=== PATIENT | female | born 1955 | race American Indian/Alaskan Native ===

== ENCOUNTER 2016-06-12 19:58 | Emergency (ER) | payer BC ==
[2016-06-12] MEDS ORDERED: APRESOLINE IV ONE (20:59)
[2016-06-12] MEDS ORDERED: ANTIVERT PO ONE (20:59)
--- NOTE | 2016-06-12 21:03 | Emergency Department Report ---
HPI - General Time Seen by Provider: 06/12/16 20:55 - HPI HPI: This is a 61-year-old -[place] female who presents to the emergency department via EMS from home with complaint of dizziness and vertigo like symptoms. The patient says that she was twisting around to "get the baby" which I believe to be her grandson or granddaughter, and all of a sudden the room started spinning. The patient began having some nausea and sweats. She then went into the living room and was able to "put the baby down in the crib", but the spinning worsened. It feels better when she keeps her eyes closed. She denies any headache, slurred speech, chest pain, shortness of breath. She is not taking anything or receive anything for her symptoms in route. She has a past medical history of hypertension for which she takes 10 mg of amlodipine. Her primary care doctor is a Dr. Mcconnell. She's never had these symptoms occur before. ED Past Medical Hx - Past Medical History Hx Hypertension: Yes (15 yrs) Hx Asthma: No Hx HIV: No - Surgical History Additional Surgical History: fibroid surgery - Social History Smoking Status: Former Smoker - Medications Home Medications: Home Medications Medication Instructions Recorded Confirmed Last Taken Type amLODIPine [Norvasc] 10 mg PO DAILY 08/24/13 09/06/14 09/06/14 History cloNIDine [Catapres] 0.2 mg PO QHS 08/24/13 09/06/14 09/05/14 History Furosemide 1 tab PO DAILY 09/05/14 09/06/14 09/05/14 History Losartan Potassium 50 mg PO DAILY 09/05/14 09/06/14 09/05/14 History Potassium Chloride 10 meq PO DAILY 09/05/14 09/06/14 09/05/14 History Meclizine [Antivert] 25 mg PO TID PRN #16 tablet 06/13/16 Unknown Rx ED Review of Systems ROS: Stated complaint: VERTIGO Other details as noted in HPI Comment: All other systems reviewed and negative Constitutional: diaphoresis. denies: chills, fever Eyes: other (vertigo). denies: eye pain ENT: denies: ear pain, throat pain Respiratory: denies: cough, shortness of breath, wheezing Cardiovascular: denies: chest pain, palpitations Gastrointestinal: nausea. denies: abdominal pain Genitourinary: denies: urgency, dysuria, discharge Musculoskeletal: denies: back pain, joint swelling, arthralgia Skin: denies: rash, lesions Neurological: vertigo. denies: headache Physical Exam - Physical Exam Physical Exam: GENERAL: The patient is well-developed well-nourished. HEENT: Normocephalic. Atraumatic. Extraocular motions are intact. Patient has moist mucous membranes. Pupils equal reactive to light bilaterally. Patient has horizontal nystagmus. NECK: Supple. Trachea is midline. CHEST/LUNGS: Clear to auscultation. There is no respiratory distress noted. HEART/CARDIOVASCULAR: Regular. There is no tachycardia. There is no gallop rub or murmur. ABDOMEN: Abdomen is soft, nontender. Patient has normal bowel sounds. There is no abdominal distention. SKIN: There is no rash. There is no edema. There is no diaphoresis. NEURO: The patient is awake, alert, and oriented. The patient is cooperative. The patient has no focal neurologic deficits. The patient has normal speech. MUSCULOSKELETAL: There is no tenderness or deformity. There is no limitation range of motion. There is no evidence of acute injury. ED Medical Decision Making - Lab Data Result diagrams: 06/12/16 21:16 06/12/16 21:16 - EKG Data -: EKG Interpreted by Me EKG shows normal: sinus rhythm, axis, intervals, QRS complexes, ST-T waves ( nonspecific T wave) Rate: normal - EKG Data When compared to previous EKG there are: previous EKG unavailable Interpretation: other (nonspecific t wave, sinus. No STEMI) - Radiology Data Radiology results: report reviewed CT of the head shows chronic microvascular changes but otherwise no acute intracranial process. - Medical Decision Making 61-year-old female presents to the emergency department with complaint of the room spinning and some vertigo-like dizziness. EKG does not show any signs of ST elevation PR, ischemia or dysrhythmia. CT of the head does not show any bleed, shift, mass or any acute process. Rest the patient's labs and unremarkable clean no signs of infection, normal thyroid function, no electrolyte abnormalities and a normal troponin. Patient also presented with elevated blood pressure. She was given a dose of hydralazine as well as a dose of Antivert. She was reevaluated multiple times for multiple hours and is now feeling better. Patient was able to ambulate to the bathroom and back to the room without any instability and says she is feeling better and no longer sees anything spinning. The blood pressures come down to more reasonable level. It is still elevated but at this level and feel that the patient is safe for discharge home. She will go home and take one of her clonidine. We discussed dietary changes including staying with him foods that are high in salt and caffeinated products. She will follow-up with her primary care doctor, Dr. Mcconnell, in the next few days. She will return to the ER with any worsening or symptoms or any acute distress. There is been no focal, motor or sensory deficits. Cranial nerves are intact. - Differential Diagnosis vertigo, Mnire's disease, TIA, brain bleed, dysrhythmia Critical Care Time: No Critical care attestation.: If time is entered above; I have spent that time in minutes in the direct care of this critically ill patient, excluding procedure time. ED Disposition Clinical Impression: Vertigo Hypertension Qualifiers: Hypertension type: essential hypertension Qualified Code(s): I10 - Essential ( primary) hypertension Disposition: DISCHARGED TO HOME OR SELFCARE Is pt being admited?: No Condition: Stable Instructions: Vertigo (ED), Hypertension (ED), Dizziness (ED) Additional Instructions: Please follow-up with a primary care doctor in the next few days. Return to the emergency department with any worsening of your symptoms or any acute distress. Try to stay away from foods that are high in salt and caffeinated products to assist with your blood pressure. Keep a blood pressure log. I have prescribed you a medication called antivert to help with the sensation of the room spinning which is called vertigo. This medication can be slightly sedating and therefore he should not take it prior to driving, working, being responsible for children are mixing it with alcohol. Also if you are having the vertigo-like sensation is recommended that you are not driving or operating any heavy machinery. Prescriptions: Meclizine [Antivert] 25 mg PO TID PRN #16 tablet PRN Reason: Vertigo Referrals: PRIMARY CAREMD [Primary Care Provider] - 3-5 Days OLIMPIA KELLY MD, PHD [Staff Physician] - 3-5 Days [facility] [Outside] - 3-5 Days
[2016-06-12 21:45] LABS: Basophils % (Auto) 0.3 % (0.0-1.8); Eosinophils % (Auto) 0.9 % (0.0-4.3); Hematocrit 42.3 % (30.3-42.9); Hemoglobin 13.8 gm/dl (10.1-14.3); Mean Corpuscular HGB Conc 33 % (30-34); Mean Corpuscular Hemoglobin 30 pg (28-32); Mean Corpuscular Volume 92 fl (79-97); Platelet Count 210 K/mm3 (140-440); Red Blood Count 4.61 M/mm3 (3.65-5.03); Red Cell Distribution Width 13.8 % (13.2-15.2); White Blood Count 8.4 K/mm3 (4.5-11.0)
[2016-06-12 22:00] LABS: Anion Gap 16 mmol/L; Blood Urea Nitrogen 14 mg/dL (7-17); Calcium 9.3 mg/dL (8.4-10.2); Carbon Dioxide 28 mmol/L (22-30); Chloride 95.6 mmol/L (98-107); Glucose 273 mg/dL (65-100); Potassium 4.1 mmol/L (3.6-5.0); Sodium 135 mmol/L (137-145)
--- NOTE | 2016-06-12 22:19 | Cat Scan Report ---
FINAL REPORT PROCEDURE: CT HEAD/BRAIN WO CON TECHNIQUE: Computerized tomography of the head was performed without contrast material. HISTORY: Dizziness COMPARISON: No prior studies are available for comparison. FINDINGS: There are patchy bilateral white matter low attenuation areas, likely related to chronic microvascular ischemic changes. No CT evidence of intracranial mass, hemorrhage, acute territorial infarction, or hydrocephalus. The intracranial arteries are symmetric in density. There is a chronic appearing lacunar infarct in the anterior limb of the left internal capsule. Second small subcentimeter chronic lacunar infarct is seen in the left basal ganglia. Calvarium is intact. Visualized paranasal sinuses and mastoids are aerated. IMPRESSION: Chronic microvascular ischemic changes. No CT evidence of acute abnormality.
[2016-06-12] MEDS ORDERED: VALIUM IV ONE (22:41)
[2016-06-12 23:44] VITALS: BP 169/85
== END 2016-06-13 01:16 | disposition home or self-care (01) ==
LOC: ED 19:58
DX: I10 Essential (primary) hypertension (principal); R42 Dizziness and giddiness; Z87.891 Personal history of nicotine dependence
CPT/HCPCS: 36415; 70450; 80048; 82962; 84443; 84484; 85025; 93005; 93010; 96372; 96374; 96375; 99285; J0360; J3360; J1815

== ENCOUNTER 2016-07-01 09:46 | Outpatient (CLI) | payer BC ==
--- NOTE | 2016-07-01 13:28 | Mammography Report ---
BILATERAL DIGITAL SCREENING MAMMOGRAM with CAD: 07/01/16 09:46:00 CLINICAL: Routine screening. COMPARISON:05/26/15 FINDINGS: The breasts are almost entirely fatty. No new mass, architectural distortion or suspicious calcifications. IMPRESSION: No mammographic evidence of malignancy. BI-RADS CATEGORY: 2 -- Benign RECOMMENDATION: Routine mammographic screening in one year. COMMENT: Patient follow-up letters are generated by our [employer] application.
== END 2016-07-01 09:47 | disposition home or self-care (01) ==
LOC: SPVWC 09:46
PROVIDERS: ATTEND Advanced Practice Midwife
DX: Z12.31 Encounter for screening mammogram for malignant neoplasm of breast (principal)
CPT/HCPCS: 77067; G0202

== ENCOUNTER 2017-07-02 08:43 | Outpatient (CLI) | payer BC ==
--- NOTE | 2017-07-03 13:06 | Mammography Report ---
BILATERAL DIGITAL SCREENING MAMMOGRAM with CAD: 07/02/17 08:43:00 CLINICAL: Routine screening. COMPARISON:Thirteen thousand seventeen FINDINGS: The breasts are almost entirely fatty. No new mass, architectural distortion or suspicious calcifications. IMPRESSION: No mammographic evidence of malignancy. BI-RADS CATEGORY: 2 -- Benign RECOMMENDATION: Routine mammographic screening in one year. COMMENT: Patient follow-up letters are generated by our [employer] application.
== END 2017-07-02 08:44 | disposition home or self-care (01) ==
LOC: SPVWC 08:43
PROVIDERS: ATTEND Advanced Practice Midwife
DX: Z12.31 Encounter for screening mammogram for malignant neoplasm of breast (principal)
CPT/HCPCS: 77067

== ENCOUNTER 2018-07-15 08:26 | Outpatient (CLI) | payer BC ==
--- NOTE | 2018-07-15 14:49 | Mammography Report ---
BILATERAL DIGITAL SCREENING MAMMOGRAM with CAD: 07/15/18 08:26:00 CLINICAL: Routine screening. COMPARISON:07/02/17 FINDINGS: The breasts are almost entirely fatty. No new mass, architectural distortion or suspicious calcifications. IMPRESSION: No mammographic evidence of malignancy. BI-RADS CATEGORY: 2 -- Benign RECOMMENDATION: Routine mammographic screening in one year. COMMENT: Patient follow-up letters are generated by our [employer] application.
== END 2018-07-15 08:27 | disposition home or self-care (01) ==
LOC: SPVWC 08:26
PROVIDERS: ATTEND Family Medicine
DX: Z12.31 Encounter for screening mammogram for malignant neoplasm of breast (principal); E66.9 Obesity, unspecified; I10 Essential (primary) hypertension; Z87.891 Personal history of nicotine dependence
CPT/HCPCS: 77067

== ENCOUNTER 2019-07-20 08:43 | Outpatient (CLI) | payer BC ==
--- NOTE | 2019-07-20 09:42 | Mammography Report ---
DIGITAL SCREENING MAMMOGRAM WITH CAD, 07/20/2019 INDICATION: Routine screening mammography. TECHNIQUE: Digital bilateral 2D mammography was obtained in the craniocaudal and mediolateral obliq ue projections. This examination was interpreted with the benefit of Computer-Aided Detection analysi s. COMPARISON: 07/15/2018, 07/02/2017. FINDINGS: Breast Density: The breasts are almost entirely fatty. There is no evidence of dominant mass, suspicious calcifications or architectural distortion in eithe r breast. IMPRESSION: Follow up recommendation: Routine yearly BI-RADS Category 1: Negative. A "normal" or negative report should not discourage follow up or biopsy of a clinically significant f inding. A written summary of these findings will be mailed to the patient. The patient will be entered into a mammography reporting system which will generate a reminder letter for the patient's next appointmen t at the appropriate interval. The [employer] recommends yearly mammograms starting at age 40 and continuing as l nicole as a woman is in good health. Breast MRI is recommended for women with an approximate 20-25% or greater lifetime risk of breast cancer, including women with a strong family history of breast or ova garrison cancer or who have been treated for Hodgkin's disease. Signer Name: Cyril Deluca MD Signed: 07/20/2019 9:37 AM Workstation Name: [id number]
== END 2019-07-20 08:44 | disposition home or self-care (01) ==
LOC: SPVWC 08:43
PROVIDERS: ATTEND Advanced Practice Midwife
DX: Z12.31 Encounter for screening mammogram for malignant neoplasm of breast (principal)
CPT/HCPCS: 77067

== ENCOUNTER 2021-06-06 15:28 | Outpatient (CLI) | payer BC ==
--- NOTE | 2021-06-08 09:22 | Mammography Report ---
DIGITAL SCREENING MAMMOGRAM WITH CAD, 06/06/2021 CLINICAL INFORMATION / INDICATION: Routine screening mammography. TECHNIQUE: Digital bilateral 2D mammography was obtained in the craniocaudal and mediolateral obliqu e projections. This examination was interpreted with the benefit of Computer-Aided Detection analysis . COMPARISON: 07/20/2019, 07/15/2018, 07/02/2017 FINDINGS: Breast Density: There are scattered areas of fibroglandular density. No dominant mass, suspicious calcifications, or architectural distortion in either breast. Scattered circumscribed bilateral breast nodularity is again noted and has not significantly changed when compared to multiple prior mammograms. Few grouped calcifications in the lateral right breast al so remain stable. IMPRESSION: No mammographic evidence of malignancy. Follow up recommendation: Routine yearly BI-RADS Category 2: BENIGN. A "normal" or negative report should not discourage follow up or biopsy of a clinically significant f inding. A written summary of these findings will be mailed to the patient. The patient will be entered into a mammography reporting system which will generate a reminder letter for the patient's next appointmen t at the appropriate interval. The [employer] recommends yearly mammograms starting at age 40 and continuing as l nicole as a woman is in good health. Breast MRI is recommended for women with an approximate 20-25% or greater lifetime risk of breast cancer, including women with a strong family history of breast or ova garrison cancer or who have been treated for Hodgkin's disease. Signer Name: Liv Beaver MD Signed: 06/08/2021 9:18 AM Workstation Name: [id number]
== END 2021-06-06 15:29 | disposition home or self-care (01) ==
LOC: SPVWC 15:28
PROVIDERS: ATTEND Advanced Practice Midwife
DX: Z12.31 Encounter for screening mammogram for malignant neoplasm of breast (principal)
CPT/HCPCS: 77067